=== PATIENT | male | born 1955 | race Caucasian/White ===

== ENCOUNTER 2016-10-24 10:50 | Observation (INO) ==
[2016-10-24 11:17] LABS: Basophils # 0.1 K/mcL (0.0-0.2); Basophils % 0.6 %; Eosinophils # 0.5 K/mcL (0.0-0.6); Eosinophils % 3.7 %; Hematocrit 48.6 % (37.5-50.1); Hemoglobin 16.5 g/dL (12.9-16.9); Immature Granulocytes % 0.3 % (0-4); Lymphocytes # 2.1 K/mcL (0.6-4.6); Lymphocytes % 16.5 %; Mean Corpuscular Hemoglobin 29.1 pg (28.0-33.3); Mean Corpuscular Volume 85.7 fL (83.0-100.0); Monocytes # 0.8 K/mcL (0.0-1.3); Monocytes % 6.3 %; Neutrophils # 9.2 K/mcL (1.6-8.9); Platelet Count 263 K/mcL (140-400); Red Blood Count 5.67 M/mcL (4.19-5.50); Red Cell Distribution Width 13.6 % (11.5-14.5); Segmented Neutrophils % 72.6 %
[2016-10-24 11:29] LABS: Activated Partial Thrombo Time 29.8 Seconds (26.0-36.0); BUN/Creatinine Ratio 16 (6-26); Blood Urea Nitrogen 14 mg/dL (8-26); Calcium 9.6 mg/dL (8.6-10.8); Carbon Dioxide 23 mEq/L (19-29); Chloride 102 mEq/L (98-109); Glucose 119 mg/dL (70-99); Osmolality,Calculated 280 (280-300); Potassium 4.3 mEq/L (3.5-4.5); Sodium 134 mEq/L (136-145); eGFR For African Americans > 60 (> 60); eGFR For Non-African Americans > 60 (> 60)
--- NOTE | 2016-10-24 11:47 | Emergency Department Note ---
Disposition Clinical Impression: Stroke Qualifiers: CVA mechanism: unspecified Qualified Code(s): I63.9 - Cerebral infarction, unspecified Disposition: Admitted As Inpatient Condition: Fair Time of Disposition: 13:18 Neuro HPI - General Chief Complaint: ED Neuro Symptoms/Deficit Stated Complaint: Left sided numbness Time Seen by Provider: 10/24/16 10:57 Source: patient, family, EMS Mode of arrival: EMS Limitations: other (poor historian. ) Nursing Notes Reviewed: Yes Vital Signs Reviewed: Yes - History of Present Illness HPI Narrative: 61 -year-old male with past medical history of left shoulder arthritis, history of suicidal ideation, hypertension, anxiety, smoking history, HLD. Should arrive to the ED by squad. He noticed left-sided weakness in his arm, face, leg started about 5 AM this morning. Patient is a very poor historian. He stated that last night he had very high blood pressure, but could not say what his blood pressure was. He took his blood pressure meds around 1 AM, drank a beer, and then went to sleep. He then woke up again around 430 and stated his blood pressure was still high. Around 5 AM he felt left-sided numbness with mild facial drooping and left arm and left leg weakness. He denies having any trouble walking. He denies chst pain, nausea, vomiting, diarrhea, fever, chills. He does report headache with pain behind his left eye and left-sided headache. Onset of Symptoms Date: 10/24/16 Onset of Symptoms Time: 05:00 Symptom Onset Unknown: Yes Location: speech, left face, left arm, left leg History of same: No Severity: mild Quality: weakness, numbness, tingling Symptoms Improving: No Improves with: none Worsens with: none Context: gradual onset On Anticoagulants: No Associated symptoms: Reports: headaches - Related Data Home Medications: Home Medications Medication Instructions Recorded Confirmed Lisinopril/Hydrochlorothiazide 1 each PO DAILY 10/24/16 10/24/16 [Zestoretic 20-25 mg Tablet] Metoprolol [Lopressor] 25 mg PO BID 10/24/16 10/24/16 Previous Rx's Medication Instructions Recorded diazePAM [Valium] 5 mg PO TID PRN #12 tablet 08/14/16 Allergies/Adverse Reactions: Allergies Allergy/AdvReac Type Severity Reaction Status Date / Time cephalexin [From Keflex] Allergy Diarrhea Verified 04/08/15 07:35 ciprofloxacin [From Cipro] Allergy Diarrhea Verified 04/08/15 07:35 Hydromorphone [From Dilaudid] Allergy Hives Verified 04/08/15 07:35 All systems ED: reviewed and negative except as stated. Past Medical History - Past Medical History Medical history: Reports: arthritis, hypertension Surgical history: Reports: orthopedic, other Psychiatric history: Reports: no psych history - Social History Smoking Status: Current every day smoker Smokeless Tobacco Status: No Alcohol use: Reports: occasionally Drug use: Reports: marijuana, prescription drug abuse Physical Exam - General Limitations: no limitations General appearance: alert, in no apparent distress - Head Head exam: atraumatic, other (mild left sided facial drooping with inabilit to move left side of mouth while speaking. ) - Eye Eye exam: Present: normal appearance - Neck Neck exam: Present: normal inspection, trachea midline - Chest Chest inspection: Present: normal inspection, symmetric chest wall rise - Respiratory Respiratory exam: Present: wheezes - Cardiovascular Cardiovascular exam: Present: regular rate, normal rhythm, +S1, +S2 - Abdominal Exam Abdominal exam: Present: soft, Non-Tender, normal bowel sounds - Extremities Exam Extremities exam: Present: other (Decreased sensation of left arm and left leg.) - Back Exam Back exam: Present: normal inspection - Neurological Exam Neurological exam: Present: alert, oriented X3, motor sensory deficit, other ( Muscle strength 5 out of 5.) - Skin Skin exam: Present: warm, dry, intact Course Vital Signs Temperature 99.0 F 10/24/16 10:55 Pulse Rate 64 10/24/16 10:55 Respiratory Rate 16 10/24/16 10:55 Blood Pressure 0/0 10/24/16 10:55 O2 Sat by Pulse Oximetry 98 10/24/16 10:55 Temperature 99.0 F 10/24/16 10:55 Pulse Rate 59 10/24/16 13:40 Respiratory Rate 16 10/24/16 13:41 Blood Pressure 139/84 10/24/16 13:41 O2 Sat by Pulse Oximetry 99 10/24/16 12:43 Oxygen Delivery Oxygen Delivery Room Air Neuro Symptoms/Deficit - MDM Narrative Medical decision making narrative: Stroke alert was called. NIH scale 2. Spoke with neurologist Dr. Bains at [facility] , who evaluated the patient over monitor. She did not recommend use of TPA at this time. CBC showed WBC of 12.6, neutrophil count of 9.2. Coags were unremarkable. Patient's EKG showed first degree heart block, troponin negative. CT head was negative. Patient needs to be admitted for further stroke workup. spoke With hospitalist, , who has accepted this patient for admission. Also spoke with neurologist, Dr. Velez, who will see this patient as consult. - Medical Records Medical records reviewed: Yes I reviewed the patient's medical records. - Lab Data Lab results reviewed: Yes I reviewed the patient's lab results. Result diagrams: 10/24/16 11:11 10/24/16 11:11 Lab Results 10/24/16 10/24/16 10/24/16 Range/Units 11:01 11:11 11:11 WBC 12.6 H (4.3-11.1) K/mcL RBC 5.67 H (4.19-5.50) M/mcL Hgb 16.5 (12.9-16.9) g/dL Hct 48.6 (37.5-50.1) % MCV 85.7 (83.0-100.0) fL MCH 29.1 (28.0-33.3) pg MCHC 34.0 (31.6-35.5) g/dL RDW 13.6 (11.5-14.5) % Plt Count 263 (140-400) K/mcL MPV 10.0 (9.4-12.4) fL Immature Gran % 0.3 (0-4) % Seg Neutrophils % 72.6 % Lymphocytes % 16.5 % Monocytes % 6.3 % Eosinophils % 3.7 % Basophils % 0.6 % Neutrophils # 9.2 H (1.6-8.9) K/mcL Lymphocytes # 2.1 (0.6-4.6) K/mcL Monocytes # 0.8 (0.0-1.3) K/mcL Eosinophils # 0.5 (0.0-0.6) K/mcL Basophils # 0.1 (0.0-0.2) K/mcL PT 11.0 (9.4-12.1) Seconds INR 1.0 APTT 29.8 (26.0-36.0) Seconds Sodium (136-145) mEq/L Potassium (3.5-4.5) mEq/L Chloride (98-109) mEq/L Carbon Dioxide (19-29) mEq/L BUN (8-26) mg/dL Creatinine (0.72-1.25) mg/dL Est GFR ( Amer) (> 60) Est GFR (Non-Af Amer) (> 60) BUN/Creatinine Ratio (6-26) Glucose (70-99) mg/dL POC Glucose 118 H (58-89) Calculated Osmolality (280-300) Calcium (8.6-10.8) mg/dL Troponin I (0-0.03) ng/mL Ethyl Alcohol (0-10) mg/dL 10/24/16 10/24/16 10/24/16 Range/Units 11:11 11:11 11:11 WBC (4.3-11.1) K/mcL RBC (4.19-5.50) M/mcL Hgb (12.9-16.9) g/dL Hct (37.5-50.1) % MCV (83.0-100.0) fL MCH (28.0-33.3) pg MCHC (31.6-35.5) g/dL RDW (11.5-14.5) % Plt Count (140-400) K/mcL MPV (9.4-12.4) fL Immature Gran % (0-4) % Seg Neutrophils % % Lymphocytes % % Monocytes % % Eosinophils % % Basophils % % Neutrophils # (1.6-8.9) K/mcL Lymphocytes # (0.6-4.6) K/mcL Monocytes # (0.0-1.3) K/mcL Eosinophils # (0.0-0.6) K/mcL Basophils # (0.0-0.2) K/mcL PT (9.4-12.1) Seconds INR APTT (26.0-36.0) Seconds Sodium 134 L (136-145) mEq/L Potassium 4.3 (3.5-4.5) mEq/L Chloride 102 (98-109) mEq/L Carbon Dioxide 23 (19-29) mEq/L BUN 14 (8-26) mg/dL Creatinine 0.87 (0.72-1.25) mg/dL Est GFR ( Amer) > 60 (> 60) Est GFR (Non-Af Amer) > 60 (> 60) BUN/Creatinine Ratio 16 (6-26) Glucose 119 H (70-99) mg/dL POC Glucose (58-89) Calculated Osmolality 280 (280-300) Calcium 9.6 (8.6-10.8) mg/dL Troponin I 0.01 (0-0.03) ng/mL Ethyl Alcohol < 10 (0-10) mg/dL - Radiology Data Radiology results reviewed: Yes I reviewed the patient's radiology results. - EKG Data EKG attestation: Yes I reviewed and interpreted this EKG. EKG results narrative: sinus bradycardia with first degree heart block, no ischemic changes. Ventricular rate: 58, SC interval 223, QRS duration: 104, Qt/Qtc: 398/396, P-R- T axes: 35 71 59 NIH Stroke Scale - Level of Consciousness LOC: Alert - LOC Questions LOC Questions: Answers both correctly - LOC Commands LOC Commands: Performs both correctly - Best Gaze Best Gaze: Normal - Visual Visual: No visual loss - Facial Palsy Facial Palsy: Minor asymmetry on smiling, flattened nasolabial fold - Motor Arms Motor Arm-Left: No drift for 10 seconds Motor Arm-Right: No drift for 10 seconds - Motor Legs Motor Leg-Left: No drift for 5 seconds Motor Leg-Right: No drift for 5 seconds - Limb Ataxia Limb Ataxia: Normal, No Ataxia - Sensory Sensory: Mild to moderate loss, "not as sharp" - Best Language Best Language: No aphasia - Dysarthria Dysarthria: Normal - Extinction and Inattention Extinction and Inattention: Normal - NIHSS Total Score NIHSS Total Score: 2 Attestation Statement - Attestation Attestation: I examined this patient and my medical decision-making was reviewed with the EPIDEMIOLOGIST/PA/Advanced Practice Nurse/Resident Physician. I agree with the documented findings, disposition and treatment plan as described except to the extent set forth below. 61-year-old who had onset of left-sided numbness and facial weakness at about 5 AM this morning. Patient reported to the emergency department about 11 AM. Physical examination he hasslight slurred speech and facial weakness, numbness to the left side of his body. CT scan of the head was obtained reported negative per radiology. A Valerio stroke consult was obtained with [facility] who did not feel the patient was a TPA candidate. The discussed the patient with the hospitalist patient will be admitted.
--- NOTE | 2016-10-24 13:23 | Neurology - Consult Note ---
Date of Encounter: 10/24/16 Time of Encounter: 12:15 Assessment and Plan (1) Stroke Current Visit: Yes Status: Acute 61-year old man with multiple risk factors for stroke, admitted with left hemibody syndrome and left facial droop, likely with acute stroke. His NIH was determined to be 2, and tPA was not give (telestroke with [facility]). Likely small vessel stroke, suspect right thalamic. CTH - unremarkable except for longstanding white matter disease. MRI brain. Ok for BP to be 160-180 for the first 24 hrs, after which - needs HTN control. ASA 325. CT angiography of head and neck vessels (or carotid duplex) and Cardiac Echo. Lipid panel, if elevated, need to start statin. Smoking cessation. Case will be followed by Dr. Lovell/Kris tomorrow. Qualifiers: CVA mechanism: unspecified Qualified Code(s): I63.9 - Cerebral infarction, unspecified History of Present Illness Chief complaint: numbness on the left HPI: Mr. Lucia is a 61 year old male witih prior history of smoking, hypertension , cardiomyopathy, with complaints of left-sided numbness that he noticed this morning at 530. He apparently came to the ER at 10:30 or so, only after talking to several other people. His blood pressure was also found to be high at 170-180s. He also had a right-sided headache, without any neck pain. He also has a history of PTSD and depression and anxiety and aversion to crowds. He lives by himself. He states that he is doing ok now, but still has the sensory problem. No chest pain, no shortness of breath, no swallowing difficulty. He has prior chronic issues of hip and back issues and has had surgeries for those. CTH showed no intracranial bleed. Past Med Surg Social Fam HX - Past Medical History Medical history: arthritis, cardiomyopathy, hypertension Psychiatric history: anxiety, depression, panic disorder, PTSD - Past Surgical History Surgical History: orthopedic, other - Social History Smoking Status: Heavy tobacco smoker Smokeless Tobacco Status: No Alcohol use: occasionally Drug use: marijuana, prescription drug abuse Occupational status: unemployed Current living situation: Home - Independent Medications and Allergies diazePAM [Valium] 5 mg PO TID PRN #12 tablet 08/14/16 [Rx] Lisinopril/Hydrochlorothiazide [Zestoretic 20-25 mg Tablet] 1 each PO DAILY [History] Metoprolol [Lopressor] 25 mg PO BID 10/24/16 [History] Allergies cephalexin [From Keflex] Allergy (Verified 04/08/15 07:35) Diarrhea ciprofloxacin [From Cipro] Allergy (Verified 04/08/15 07:35) Diarrhea Hydromorphone [From Dilaudid] Allergy (Verified 04/08/15 07:35) Hives All Systems: A 10-system review of systems was performed and is negative for pertinent findings except as documented above in the HPI. - Constitutional Constitutional ROS IM: as per HPI Physical Examination - Vital Signs Vital Signs: Initial Vital Signs Temp Pulse Resp BP Pulse Ox 99.0 F 64 16 0/0 98 10/24/16 10:55 10/24/16 10:55 10/24/16 10:55 10/24/16 10:55 10/24/16 10:55 Vital Signs - 24 hr 10/24/16 10:55 10/24/16 11:20 10/24/16 11:34 Temperature 99.0 F Pulse Rate 64 64 61 Respiratory Rate 16 16 16 Blood Pressure 0/0 147/90 141/85 O2 Sat by Pulse Oximetry 98 98 10/24/16 12:08 10/24/16 12:43 Temperature Pulse Rate 62 58 Respiratory Rate 16 16 Blood Pressure 148/64 135/98 O2 Sat by Pulse Oximetry 98 99 - Exam Exam: no double extinction. no hemineglect. - Constitutional General appearance: comfortable - Neurologic Detailed motor examination: full strength in all major muscle groups Motor examination - right side: 5/5: deltoids, biceps, triceps, wrist flexion, wrist extension, room server, hip flexors, tibialis Anterior, quadriceps, toe extension (EHL), plantarflexion Motor examination - left side: 5/5: deltoids, biceps, triceps, wrist flexion, wrist extension, hip flexors, room server, quadriceps, tibialis Anterior, toe extension (EHL), plantarflexion Detailed sensory examination: extinction (none), other (left hemibody sensory loss) Reflex and gait examination: other (mildly hyper-reflexic on the left.) Reflexes: Biceps: 3+ (on the left), Triceps: 3+ (on the left), Brachioradialis: 3+ (on the left), Patella: 3+ (bilaterally), Achilles: 0 (bilaterally) Mental Status Examination: awake, alert, oriented to person, oriented to place, oriented to time, follows commands appropriately, answers questions appropriately, no agnosia, no aphasia, no aproxia Cranial nerve examination: PERRL, EOMI, visual eddy intact, corneal reflexes brisk symmetrically, sensory to face intact (left face sensory los), mastication intact, no facial asymmetry is present (mild left facial droop, lower face), no dysarthria, hearing is intact symmetrically, soft palate elevates bilaterally upon phonation, gag reflex intact, flexes SCM and trapezius muscles symmetrically with full power, tongue protrudes midline, no atrophy or facial fasiculations present Cranial Nerve Exam: facial hypesthesia: Left, flattening of masolabic/folds: Left (mild left lower face droop) Cerebellar examination: no dysmetria, performs finger to nose and heel to dong symmetrically without ataxia, no gait ataxia, no truncal ataxia, no difficulty with rapid alternating movements Results - Laboratory Findings CBC and BMP: 10/24/16 11:11 10/24/16 11:11 Abnormal lab findings: Abnormal lab results WBC 12.6 K/mcL (4.3-11.1) H 10/24/16 11:11 RBC 5.67 M/mcL (4.19-5.50) H 10/24/16 11:11 Neutrophils # 9.2 K/mcL (1.6-8.9) H 10/24/16 11:11 Sodium 134 mEq/L (136-145) L 10/24/16 11:11 Glucose 119 mg/dL (70-99) H 10/24/16 11:11 POC Glucose 118 (58-89) H 10/24/16 11:01 - Diagnostic Findings Additional findings: Head CT 10/24/16 10:58 IMPRESSION: No acute intracranial abnormality. Age related changes including chronic small vessel ischemic disease and cerebral atrophy. Findings were discussed with Dr. Burton on 10/24/2016 at 6:15 a.m. D/ / 10/24/2016 11:19:48 Suly Crouch MD / beata Interpreting Provider: Suly Crouch MD Consult Discharge Plan - Plan
[2016-10-24] MEDS ORDERED: Naloxone 0.4 MG/ML INJ IVP PRN (13:36)
[2016-10-24] MEDS ORDERED: Acetaminophen 325 MG TABLET PO PRN (13:36)
[2016-10-24] MEDS ORDERED: Ondansetron 4 MG/2 ML VIAL IVP PRN (13:36)
[2016-10-24] MEDS ORDERED: diazePAM 5 MG TABLET PO PRN (13:46)
[2016-10-24] MEDS ORDERED: Aspirin 81 MG TAB.CHEW PO ONE (13:50)
[2016-10-24] MEDS ORDERED: Nicotine 21 MG PATCH.TD24 TD SCH (14:00)
[2016-10-24] MEDS ORDERED: *HR* Metoprolol 5 MG/5 ML VIAL IVP PRN (14:04)
[2016-10-24] MEDS ORDERED: *HR* LORazepam 2 MG/ML VIAL IVP PRN (14:28)
--- NOTE | 2016-10-24 14:34 | Internal Med History&Physical ---
<Eric Salvador - Last Filed: 10/24/16 19:08> Date of Encounter: 10/24/16 Internal Medicine - H&P: HPI History of present illness: Mr. Lucia is a 61 year old male Internal Medicine - H&P: Meds diazePAM [Valium] 5 mg PO TID PRN #12 tablet 08/14/16 [Rx] Lisinopril/Hydrochlorothiazide [Zestoretic 20-25 mg Tablet] 1 each PO DAILY [History] Metoprolol [Lopressor] 25 mg PO BID 10/24/16 [History] Allergies cephalexin [From Keflex] Allergy (Verified 04/08/15 07:35) Diarrhea ciprofloxacin [From Cipro] Allergy (Verified 04/08/15 07:35) Diarrhea Hydromorphone [From Dilaudid] Allergy (Verified 04/08/15 07:35) Hives All Systems PM: A 10-system review of systems was performed and is negative for pertinent findings except as documented above in the HPI. - Constitutional Vitals: Temp Pulse Resp BP Pulse Ox 98.3 F 64 16 137/90 97 10/24/16 15:13 10/24/16 17:40 10/24/16 17:40 10/24/16 17:40 10/24/16 15:13 Internal Med - H&P Results - Labs CBC & Chem 7: 10/24/16 11:11 10/24/16 11:11 - Impressions ITS Impressions Brain MRI 10/24/16 13:57 IMPRESSION: 1. No evidence of acute infarct. 2. Moderate chronic microvascular white matter ischemic disease is noted supra and infratentorially. 3. Thickened secretions in the left ethmoid air cells and left maxillary sinus, concerning for acute sinusitis. D/ / 10/24/2016 16:53:59 Domo Cruz MD / rustay Interpreting Provider: Domo Cruz MD Neck MRA 10/24/16 13:57 IMPRESSION: 1. There is a 30% stenosis in the proximal right internal carotid artery using NASCET criteria. 2. The left internal carotid artery is normal in appearance. 3. The vertebral arteries are patent bilaterally. D/ / 10/24/2016 16:57:38 Domo Cruz MD / beata Interpreting Provider: Domo Cruz MD Head MRA 10/24/16 14:03 IMPRESSION: 1. Unremarkable MRA of the brain. D/ / Domo Cruz MD / Domo Cruz MD Interpreting Provider: Domo Cruz MD - Attending Attestation I examined this patient and my medical decision-making was reviewed with the Advanced Practice Nurse. I agree with the documented findings, disposition and treatment plan as described except to the extent set forth below. Physical examination: Patient is awake alert oriented 3. There is left facial droop present. Muscle strength is equal bilaterally. Sensation to light touch is diminished on the left side of the face and left upper extremity, is equal on both lower extremities. DTRs are present and symmetrical at bicipital tricipital, patellar and Achilles tendon sites. Plan: Obtain MRI of the brain and MRA. Consult neurology. He was outside the therapeutic window for TPA. <Pushpa Flores - Last Filed: 10/24/16 22:32> Date of Encounter: 10/24/16 Time of Encounter: 14:30 Assessment and Plan (1) CVA (cerebral vascular accident) Current visit: Yes Status: Acute Patient presents with left sided facial droop, with flattening of the nasolabial fold, inability to close left eye and difficulty moving left side of mouth. He reports numbness on the left side of his face as well as numbness in his left arm and leg. He reports the numbness in arm and lef have resolved and his face is starting to feel normal again. He was outside of the window for tPA. CT of the head was negative for acute intracranial abnormality. MRI with contrast of the head, brain and neck echocardiogram speech therapy consult for swallow eval NPO until patient passes swallow eval Neurology consulted. Qualifiers: CVA mechanism: unspecified Qualified Code(s): I63.9 - Cerebral infarction, unspecified (2) Smoker Current visit: Yes Status: Acute Patient reports he smokes 1.5 packs per day as well as marijuana. Discussed smoking cessation, patient not interested in quitting at this time. Smoking cessation education ordered. Nicotine patch ordered. (3) Hypertension Current visit: Yes Status: Acute Patient's blood pressure has been running 140s/90s since arrival. Holding PO medications until he passes swallow study. Metoprolol 2.5mg IVP Q6hr PRN for SBP > 160 or DBP > 100. Qualifiers: Hypertension type: essential hypertension Qualified Code(s): I10 - Essential (primary) hypertension (4) Facial droop due to stroke Current visit: Yes Status: Acute Patient reports he has had facial numbness on and off for a while. Today he has asymmetrical smile, inability to close left eye, flattening of nasolabial fold along with numbness to left arm and leg (now resolving). CVA work up initiated and Neurology consulted. speech therapy consulted for swallow eval. NPO until he passes swallow eval. (5) DVT prophylaxis Current visit: Yes Status: Acute anti-embolic stockings. lovenox 40mg SQ daily Internal Medicine - H&P: HPI Chief complaint: facial droop and left sided weakness Admitted From: Emergency Dept Plans for Post Hospital Care: Home History of present illness: Mr. Lucia is a 61 year old male with hypertension, hyperlipidemia, anxiety, presented to the emergency department today with complaints of left-sided facial droop and left arm and leg numbness. Patient reports he noted symptoms at 5 AM. His face felt numb and tingly, his left arm and left leg felt numb though he had full movement and strength. He denies any chest pain, palpitations, shortness of breath, lightheadedness. He does endorse a mild left -sided headache. He denies any nausea or vomiting, abdominal pain diarrhea, fever chills or sweats. Evaluation in the emergency department included a CT of the head which showed no intracranial abnormality. White blood cell count was mildly elevated at 12.6. [facility] was contacted, they felt he was not a candidate for TPA. On my exam, patient reports that the left sided numbness in his arm and leg has resolved, and his face is starting to feel back to normal. However patient still has left-sided facial droop, plan nasal labial fold, and asymmetrical smile. Heart has regular rate and rhythm. Lungs are clear bilaterally to auscultation. Equal strength bilaterally. Patient reports normal sensation bilaterally on face, cranial nerves are intact, no pronator drift. Past Med Surg Social Fam HX - Past Medical History Medical history: arthritis, hypertension Psychiatric history: anxiety - Past Surgical History Surgical History: orthopedic, other - Social History Smoking Status: Current every day smoker Smokeless Tobacco Status: No Alcohol use: occasionally Drug use: marijuana, prescription drug abuse - Family History Mother Living Status: Age at : 64 Cause of : [place] Hx Family Cardiac Disorders: Yes Father Living Status: Age at : 58 Cause of : [place] Hx Family Cardiac Disorders: Yes All Systems PM: A 10-system review of systems was performed and is negative for pertinent findings except as documented above in the HPI. - Constitutional Constitutional: no chills, no fever(s), no night sweats - EENT Eyes: no change in vision, no discharge, no pain, no photophobia Ears: no ear discharge, no ear pain, no tinnitus Nose, mouth and throat: no dysphagia, no nasal discharge, no neck pain, no sore throat - Cardiovascular Cardiovascular ROS IM: no chest pain, no diaphoresis, no dyspnea, no lightheadedness, no palpitations, no syncope - Respiratory Respiratory: no cough, no dyspnea, no wheezing, no excessive phlegm production - Gastrointestinal Gastrointestinal: no abdominal pain, no diarrhea, no hematemesis, no hematochezia, no melena, no nausea, no vomiting - Musculoskeletal Musculoskeletal ROS IM: no numbness, no tingling - Integumentary Integumentary IM: no rash, no unusual bruising - Neurological Neurological ROS: headache(s), numbness (left face, left arm, left leg), no confusion, no convulsions, no focal weakness, no tingling, no tremor(s) - Hematologic/Lymphatic Hematologic/Lymphatic: no easy bruising - Constitutional Vitals: Temp Pulse Resp BP Pulse Ox 99.0 F 59 16 139/84 99 10/24/16 10:55 10/24/16 13:40 10/24/16 13:41 10/24/16 13:41 10/24/16 12:43 General appearance: Present: A&O X 3, pleasant, no acute distress - Head Head exam: Present: atraumatic, normocephalic - Eye Eye exam: Present: PERRL, conjuntiva pink, sclera anicteric Pupils: Present: PERRL - Neck Neck exam general surgery: Present: supple, trachea midline. Absent: lymphadenopathy - Respiratory Respiratory exam: Present: CTAB. Absent: accessory muscle use, rales, rhonchi, wheezes - Cardiovascular Cardiovascular exam: Present: RRR, +S1, +S2. Absent: diastolic murmur, gallop, rubs, systolic murmur - GI/Abdominal GI/Abdominal exam: Present: normal bowel sounds, soft, no peritoneal signs. Absent: distended, tenderness - Extremities Exam Extremities exam: Present: warm, radial pulses palpable and symetrical. Absent : calf tenderness, cyanotic, pedal edema - Neurological Exam Neurological exam: Present: oriented X3, strengths equal and symetr throughout, facial droop. Absent: pronater drift, speech deficit - Expanded Neurological Exam Cranial Nerves: EOM's intact PM: Normal, tongue deviation PM: Normal Cerebellar function: finger to nose: Normal Sensory exam: LE 2 point discrimination: Normal, UE 2 point discrimination: Normal Neuro motor strength exam: LUE: 5, RUE: 5, LLE: 5, RLE: 5 - Skin Skin exam: Present: dry, intact Internal Med - H&P Results - Labs CBC & Chem 7: 10/24/16 11:11 10/24/16 11:11 Labs: Head CT 10/24/16 10:58 IMPRESSION: No acute intracranial abnormality. Age related changes including chronic small vessel ischemic disease and cerebral atrophy. Findings were discussed with Dr. Burton on 10/24/2016 at 6:15 a.m. D/ / 10/24/2016 11:19:48 Suly Crouch MD / beata Interpreting Provider: Suly Crouch MD - Diagnostic Studies CT scan - head Additional comments: Head CT 10/24/16 10:58
[2016-10-24] MEDS: Nicotine 21 MG PATCH.TD24 TD SCH (16:57)
[2016-10-24] MEDS ORDERED: *HR* Morphine 2 MG/ML SYRINGE IVP PRN (18:27)
[2016-10-24] MEDS: Ipratropium/Albuterol Neb 3 ML IH PRN (21:36)
[2016-10-25] MEDS: Ketorolac 30 MG/ML VIAL IVP PRN ×2 (01:58→13:03)
[2016-10-25 02:51] LABS: Basophils % 0.3 %; Eosinophils # 0.1 K/mcL (0.0-0.6); Eosinophils % 0.5 %; Hematocrit 49.6 % (37.5-50.1); Hemoglobin 17.1 g/dL (12.9-16.9); Immature Granulocytes % 0.4 % (0-4); Lymphocytes % 15.6 %; Mean Corpuscular HGB Conc 34.5 g/dL (31.6-35.5); Mean Corpuscular Volume 84.1 fL (83.0-100.0); Mean Platelet Volume 9.9 fL (9.4-12.4); Monocytes # 0.8 K/mcL (0.0-1.3); Monocytes % 5.9 %; Neutrophils # 10.1 K/mcL (1.6-8.9); Platelet Count 279 K/mcL (140-400); Red Cell Distribution Width 13.3 % (11.5-14.5); Segmented Neutrophils % 77.3 %
[2016-10-25 02:56] LABS: INR 1.1; Prothrombin Time 11.6 Seconds (9.4-12.1)
[2016-10-25 03:07] LABS: BUN/Creatinine Ratio 13 (6-26); Blood Urea Nitrogen 13 mg/dL (8-26); Carbon Dioxide 21 mEq/L (19-29); Chloride 99 mEq/L (98-109); Cholesterol 212 mg/dL (< 200); Glucose 117 mg/dL (70-99); HDL Cholesterol 42 mg/dL (40-59); LDL Cholesterol,Calculated 135 mg/dL (0-99); Osmolality,Calculated 277 (280-300); Sodium 133 mEq/L (136-145); Triglycerides 174 mg/dL (< 150); eGFR For African Americans > 60 (> 60); eGFR For Non-African Americans > 60 (> 60)
--- NOTE | 2016-10-25 03:27 | Event Note ---
Date of Encounter: 10/25/16 Time of Encounter: 03:26 On-call Hospitalist Note: I was paged by the nurse at abot 02:10 AM. RN reported that the pt presented with left facial weakness, but was noted to have slurred speech, new weakness of the left upper and lower extemities. NIHSS is 5 (was 1 at 1:30 AM). Code stroke was called. CT head was negative for bleed. Called [facility] neurologist Dr Bains, who indicated that the pt is not a candidate for TPA (because the NIHSS was never 0 during this admission. Neurologist recommended CTA head - which was done and showed no occlusive thrombus. Pt is transferred back to [facility]
[2016-10-25] MEDS ORDERED: 0.9 % Sodium Chloride 1,000 ML IVC SCH (03:30)
[2016-10-25] MEDS ORDERED: *HR* Enoxaparin 40 MG/0.4 ML SYRINGE SQ SCH (07:00)
[2016-10-25] MEDS: Ipratropium/Albuterol Neb 3 ML IH PRN (08:03)
[2016-10-25] MEDS ORDERED: Aspirin 81 MG TAB.CHEW PO SCH (09:00)
[2016-10-25] MEDS ORDERED: diazePAM 5 MG TABLET PO PRN (09:56)
--- NOTE | 2016-10-25 10:02 | Internal Med Progress Note ---
<Armand Monroe - Last Filed: 10/25/16 10:00> Date of Encounter: 10/25/16 Time of Encounter: 10:00 - Assessment and plan (1) TIA (transient ischemic attack) Current Visit: Yes Status: Acute Assessment and plan: Patient presented with left-sided facial droop as well as left facial numbness patient also had an episode overnight where he had left arm and leg numbness and weakness. At this point imaging is unremarkable including MRI just showing chronic microvascular white matter ischemic disease but no evidence of acute infarct, MRA of the neck showed a 30% stenosis of the right ICA. Echocardiogram and EKG are normal. No objective evidence of an embolic stroke. Neurology is following. Patient had no swallowing difficulty on speech eval, PT OT pending. Continue aspirin, statin. Qualifiers: Transient cerebral ischemia type: unspecified Qualified Code(s): G45.9 - Transient cerebral ischemic attack, unspecified (2) Hypertension Current Visit: Yes Status: Acute Assessment and plan: Mildly elevated at this time. Hypertensive medications had been held till speech evaluation to be completed which patient completed and passed so we will restart home medications. Qualifiers: Hypertension type: essential hypertension Qualified Code(s): I10 - Essential (primary) hypertension (3) DVT prophylaxis Current Visit: Yes Status: Acute Assessment and plan: Lovenox 40 mg subcutaneous daily. - Subjective Interval history: Patient seen and examined at bedside. Patient states that he feels better compared to yesterday. He reports some mild anxiety. Denies any weakness, numbness, tingling. - Constitutional Vitals: Temp Pulse Resp BP Pulse Ox 98.2 F 60 17 144/81 84 10/25/16 07:52 10/25/16 07:52 10/25/16 08:03 10/25/16 07:52 10/25/16 08:03 General appearance: Present: A&O X 3, pleasant, no acute distress - Respiratory Respiratory exam: Present: CTAB. Absent: rales, rhonchi, wheezes - Cardiovascular Cardiovascular exam: Present: RRR. Absent: gallop, rubs, systolic murmur - GI/Abdominal GI/Abdominal exam: Present: normal bowel sounds, soft. Absent: distended, tenderness - Extremities Exam Extremities exam: Present: warm. Absent: pedal edema, tenderness - Neurological Exam Neurological exam: Present: alert, oriented X3, strengths equal and symetr throughout, facial droop (Mild left). Absent: motor sensory deficit, speech deficit Internal Medicine: Result - Labs CBC & Chem 7: 10/25/16 02:45 10/25/16 02:45 Labs: Short CBC 10/25/16 Range/Units 02:45 WBC 13.0 H (4.3-11.1) K/mcL Hgb 17.1 H (12.9-16.9) g/dL Hct 49.6 (37.5-50.1) % Plt Count 279 (140-400) K/mcL Neutrophils # 10.1 H (1.6-8.9) K/mcL BMP 10/25/16 02:45 Sodium 133 L Potassium 4.0 Chloride 99 Carbon Dioxide 21 BUN 13 Creatinine 0.97 Glucose 117 H Calcium 10.0 Cardiac Enzymes 10/25/16 Range/Units 02:45 Troponin I 0.01 (0-0.03) ng/mL - ABG Interpretation ABG results: PT/INR, D-dimer PT 11.6 Seconds (9.4-12.1) 10/25/16 02:45 - Impressions Impressions Brain MRI 10/24/16 13:57 IMPRESSION: 1. No evidence of acute infarct. 2. Moderate chronic microvascular white matter ischemic disease is noted supra and infratentorially. 3. Thickened secretions in the left ethmoid air cells and left maxillary sinus, concerning for acute sinusitis. D/ / 10/24/2016 16:53:59 Domo Cruz MD / [facility] Interpreting Provider: Domo Cruz MD Neck MRA 10/24/16 13:57 IMPRESSION: 1. There is a 30% stenosis in the proximal right internal carotid artery using NASCET criteria. 2. The left internal carotid artery is normal in appearance. 3. The vertebral arteries are patent bilaterally. D/ / 10/24/2016 16:57:38 Domo Cruz MD / [place] Interpreting Provider: Domo Cruz MD Head MRA 10/24/16 14:03 IMPRESSION: 1. Unremarkable MRA of the brain. D/ / Domo Cruz MD / Domo Cruz MD Interpreting Provider: Domo Cruz MD Head CT 10/25/16 02:35 IMPRESSION: No acute intracranial abnormality. Chronic microvascular ischemic changes are noted. Minimal fluid is seen within the left maxillary sinus which can be seen acute sinusitis. Findings were discussed with Ericka Luna at 3:04 am on 10/25/2016. D/ / Leonie Lopes MD / Leonie Lopes MD Interpreting Provider: Leonie Lopes MD Head CTA 10/25/16 03:25 IMPRESSION: 1. Minimal atheromatous plaque within the cavernous ICAs bilaterally without flow limiting stenosis. 2. Otherwise unremarkable CTA of the brain. D/ / Figueroa Bell MD / Figueroa Bell MD Interpreting Provider: Figueroa Bell MD - VTE Documentation of Mechanical Device: Graduated compression elastic hosiery Consult Discharge Plan - Plan Referrals: NO,PCP [Non-Partnered Physician] - <Jennifer Cordova - Last Filed: 10/25/16 14:06> Date of Encounter: 10/25/16 - Constitutional Vitals: Temp Pulse Resp BP Pulse Ox 98.3 F 68 16 146/83 98 10/25/16 11:06 10/25/16 11:06 10/25/16 11:06 10/25/16 11:06 10/25/16 11:06 Internal Medicine: Result - Labs CBC & Chem 7: 10/25/16 02:45 10/25/16 02:45 Labs: Short CBC 10/25/16 Range/Units 02:45 WBC 13.0 H (4.3-11.1) K/mcL Hgb 17.1 H (12.9-16.9) g/dL Hct 49.6 (37.5-50.1) % Plt Count 279 (140-400) K/mcL Neutrophils # 10.1 H (1.6-8.9) K/mcL BMP 10/25/16 02:45 Sodium 133 L Potassium 4.0 Chloride 99 Carbon Dioxide 21 BUN 13 Creatinine 0.97 Glucose 117 H Calcium 10.0 Cardiac Enzymes 10/25/16 Range/Units 02:45 Troponin I 0.01 (0-0.03) ng/mL - ABG Interpretation ABG results: PT/INR, D-dimer PT 11.6 Seconds (9.4-12.1) 10/25/16 02:45 - Impressions Impressions Brain MRI 10/24/16 13:57 IMPRESSION: 1. No evidence of acute infarct. 2. Moderate chronic microvascular white matter ischemic disease is noted supra and infratentorially. 3. Thickened secretions in the left ethmoid air cells and left maxillary sinus, concerning for acute sinusitis. D/ / 10/24/2016 16:53:59 Domo Cruz MD / [facility] Interpreting Provider: Domo Cruz MD Neck MRA 10/24/16 13:57 IMPRESSION: 1. There is a 30% stenosis in the proximal right internal carotid artery using NASCET criteria. 2. The left internal carotid artery is normal in appearance. 3. The vertebral arteries are patent bilaterally. D/ / 10/24/2016 16:57:38 Domo Crzu MD / [place] Interpreting Provider: Domo Cruz MD Head MRA 10/24/16 14:03 IMPRESSION: 1. Unremarkable MRA of the brain. D/ / Domo Cruz MD / Domo Cruz MD Interpreting Provider: Domo Cruz MD Head CT 10/25/16 02:35 IMPRESSION: No acute intracranial abnormality. Chronic microvascular ischemic changes are noted. Minimal fluid is seen within the left maxillary sinus which can be seen acute sinusitis. Findings were discussed with Ericka Luna at 3:04 am on 10/25/2016. D/ / Leonie Lopes MD / Leonie Lopes MD Interpreting Provider: Leonie Lopes MD Head CTA 10/25/16 03:25 IMPRESSION: 1. Minimal atheromatous plaque within the cavernous ICAs bilaterally without flow limiting stenosis. 2. Otherwise unremarkable CTA of the brain. D/ / Figueroa Bell MD / iFgueroa Bell MD Interpreting Provider: Figueroa Bell MD - Attending Attestation I saw and examined pt. I have discussed with Resident Dr Gutierrez regarding pt's management plan. I agree with the documentation. Pt doing well. Facial drop and left hand numbness resolved. MRI negative. Consider TIA. Echo unremarkable. Will cont cardiac monitoring to r/o PAF. Cont antiplatelet and statin. Neurology on case and recommendation will be followed.
[2016-10-25] MEDS ORDERED: Naphazoline/Pheniramine Opth 15 ML BOTTLE BOTH EYES PRN (10:33)
[2016-10-25] MEDS ORDERED: ALPRAZolam 1 MG TABLET PO PRN (15:00)
[2016-10-25 15:20] VITALS: BP 159/88
[2016-10-25] MEDS: Nicotine 21 MG PATCH.TD24 TD SCH (15:29)
--- NOTE | 2016-10-25 17:45 | Neurology Progress Note ---
Date of Encounter: 10/25/16 Time of Encounter: 17:38 Assessment and Plan (1) TIA (transient ischemic attack) Current Visit: Yes Status: Acute I presume that this gentleman has suffered a TIA. He does have stroke risk factors which include HTN, HLD and cigarette smoking. I suspect that medical compliance may be an issue. Recommend ongoing mgmt of his risk factors, statins , also recommend starting plavix and d/c ASA. His brain MRI shows significant chronic ischemic white matter changes. Smoking cessation is strongly recommended. Will revaluate at your request. Qualifiers: Transient cerebral ischemia type: unspecified Qualified Code(s): G45.9 - Transient cerebral ischemic attack, unspecified Subjective Interval history: The chart was reviewed, the patient was seen and examined. He denies any further sx of left facial weakness or slurred speech. He came to the hospital because he thought he was having a stroke. He does have a history of HTN and HLD. He has had multiple tests completed. MRI of the brain shows significant deep white matter chronic ischemic change. He rolls and smokes his own cigarettes. He states he won't quit. Echo cardiogram was negative,MRA of head and neck reveal no hemodynamically significant lesions. He splits an adult asprin into quarters and takes one daily. Objective - Constitutional Vitals: Temp Pulse Resp BP Pulse Ox 98.6 F 63 16 159/88 97 10/25/16 15:17 10/25/16 15:17 10/25/16 15:17 10/25/16 15:17 10/25/16 15:17 - Neurological Exam Motor Examination: Present: full strength in all major muscle groups Motor examination - right side: 5/5: deltoids, biceps, triceps, wrist flexion, wrist extension, refinery operator helper crude unit, hip flexors, tibialis Anterior, quadriceps, toe extension (EHL), plantarflexion Motor examination - left side: 5/5: deltoids, biceps, triceps, wrist flexion, wrist extension, hip flexors, refinery operator helper crude unit, quadriceps, tibialis Anterior, toe extension (EHL), plantarflexion Sensation intact: Present: extinction (none), other (left hemibody sensory loss) Reflex and gait examination: other (mildly hyper-reflexic on the left.) Mental Status Examination: Present: awake, alert, oriented to person, oriented to place, oriented to time, follows commands appropriately, answers questions appropriately, no agnosia, no aphasia, no aproxia Cranial nerve examination: Present: PERRL, EOMI, visual eddy intact, corneal reflexes brisk symmetrically, sensory to face intact (left face sensory los), mastication intact, no facial asymmetry is present (mild left facial droop, lower face), no dysarthria, hearing is intact symmetrically, soft palate elevates bilaterally upon phonation, gag reflex intact, flexes SCM and trapezius muscles symmetrically with full power, tongue protrudes midline, no atrophy or facial fasiculations present Cranial Nerve Exam: facial hypesthesia: Left, flattening of masolabic/folds: Left (mild left lower face droop) Cerebellar examination: Present: no dysmetria, performs finger to nose and heel to dong symmetrically without ataxia, no gait ataxia, no truncal ataxia, no difficulty with rapid alternating movements - VTE Documentation of Mechanical Device: Graduated compression elastic hosiery Results - Laboratory Findings CBC and BMP: 10/25/16 02:45 10/25/16 02:45 Abnormal lab findings: Abnormal lab results WBC 13.0 K/mcL (4.3-11.1) H 10/25/16 02:45 RBC 5.90 M/mcL (4.19-5.50) H 10/25/16 02:45 Hgb 17.1 g/dL (12.9-16.9) H 10/25/16 02:45 Neutrophils # 10.1 K/mcL (1.6-8.9) H 10/25/16 02:45 Sodium 133 mEq/L (136-145) L 10/25/16 02:45 Glucose 117 mg/dL (70-99) H 10/25/16 02:45 POC Glucose 121 (58-89) H 10/25/16 03:01 Calculated Osmolality 277 (280-300) L 10/25/16 02:45 Triglycerides 174 mg/dL (< 150) H 10/25/16 02:45 Cholesterol 212 mg/dL (< 200) H 10/25/16 02:45 LDL Cholesterol, Calc 135 mg/dL (0-99) H 10/25/16 02:45 VLDL Cholesterol, Calc 35 mg/dL (< 31) H 10/25/16 02:45 Cholesterol/HDL Ratio 5.0 (0-4.9) H 10/25/16 02:45 Consult Discharge Plan - Plan Referrals: NO,PCP [Non-Partnered Physician] -
--- NOTE | 2016-10-25 17:50 | Electrocardiograph Report ---
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
--- NOTE | 2016-10-25 18:33 | Discharge Summary ---
Date of Encounter: 10/25/16 Time of Encounter: 18:20 - Discharge Diagnosis (1) Smoker Priority: Primary Status: Acute (2) Hypertension Priority: Primary Status: Acute Qualifiers: Hypertension type: essential hypertension Qualified Code(s): I10 - Essential (primary) hypertension (3) DVT prophylaxis Priority: Secondary Status: Acute (4) TIA (transient ischemic attack) Priority: Primary Status: Acute Qualifiers: Transient cerebral ischemia type: unspecified Qualified Code(s): G45.9 - Transient cerebral ischemic attack, unspecified - Discharge Medications Prescriptions: Atorvastatin [Lipitor] 40 mg PO HS #30 tablet Clopidogrel [Plavix] 75 mg PO DAILY #30 tablet Home Medications: diazePAM [Valium] 5 mg PO TID PRN #12 tablet 08/14/16 [Rx] Lisinopril/Hydrochlorothiazide [Zestoretic 20-25 mg Tablet] 1 each PO DAILY [History] Metoprolol [Lopressor] 25 mg PO BID 10/24/16 [History] Atorvastatin [Lipitor] 40 mg PO HS #30 tablet 10/25/16 [Rx] Clopidogrel [Plavix] 75 mg PO DAILY #30 tablet 10/25/16 [Rx] Allergies/Adverse Reactions: Allergies cephalexin [From Keflex] Allergy (Verified 04/08/15 07:35) Diarrhea ciprofloxacin [From Cipro] Allergy (Verified 04/08/15 07:35) Diarrhea Hydromorphone [From Dilaudid] Allergy (Verified 04/08/15 07:35) Hives Procedures/tests Complete & Pending: Procedures Performed prior 72 hours Category Date Time Status CT stroke alert head wo con [CT] Stat Cat Scan 10/25/16 02:35 Completed CTA Head [CT angio head] [CT] Stat Cat Scan 10/25/16 03:25 Completed MR angio head wo con [MR] Stat MRI 10/24/16 14:03 Completed MR angio neck wo/w con [MR] Stat MRI 10/24/16 13:57 Completed MR head/brain wo/w con [MR] Stat MRI 10/24/16 13:57 Completed ECG 12 lead ECG [ECG] Routine Y 10/24/16 11:57 Completed EV echocardiogram Routine Y 10/25/16 13:38 Completed Date of admission: 10/24/16 13:35 Primary care physician: Kenny Pepe DO Consults: 10/24/16 13:58 Consult to Speech Therapy [CONS] Routine Comment: Evaluate, develop and implement POC Reason for Consult: left sided facial droop. Please perform swallow study. thanks! Call Completed: Yes 10/25/16 11:10 Consult to [facility] Consultant [CONS] Routine Reason for SW Consult: Outpatient services Discharging clinician: Jennifer Cordova Anticipated date of discharge: 10/25/16 - Patient Status Disposition: Left Against Medical Advice Condition: Fair Functional capacity at discharge: independent ambulation Overall status at discharge: patient is progressing back to baseline - Discharge Instructions Follow Up With: NO,PCP [Non-Partnered Physician] - - Diet and Activity Diet: low salt diet Interval History: Mr. Lucia is a 61 year old male with hypertension, hyperlipidemia, anxiety, presented to the emergency department today with complaints of left-sided facial droop and left arm and leg numbness. Patient reports he noted symptoms at 5 AM. His face felt numb and tingly, his left arm and left leg felt numb though he had full movement and strength. He denies any chest pain, palpitations, shortness of breath, lightheadedness. He does endorse a mild left -sided headache. He denies any nausea or vomiting, abdominal pain diarrhea, fever chills or sweats. Evaluation in the emergency department included a CT of the head which showed no intracranial abnormality. White blood cell count was mildly elevated at 12.6. [facility] was contacted, they felt he was not a candidate for TPA. On my exam, patient reports that the left sided numbness in his arm and leg has resolved, and his face is starting to feel back to normal. However patient still has left-sided facial droop, plan nasal labial fold, and asymmetrical smile. Heart has regular rate and rhythm. Lungs are clear bilaterally to auscultation. Equal strength bilaterally. Patient reports normal sensation bilaterally on face, cranial nerves are intact, no pronator drift. Hospital course: Mr. Lucia is a 61 year old male admitted for left facial drop. Pt had MRI which shows negative. His symptoms resolved the next day. Neurology saw pt, consider TIA. Pt has HTN and HLD, and a current smoker. Pt was placed cardiac monitoring to r/o occult A Fib. He had Echo done which shows unremarkable. Pt had MRA show right ICA 30% stenosis. Pt is recommended to have aggressive risk factor reductive treatment with Plavix and atorvastatin by neurology. He is also adviced to stop smoking. I was called by nurse pt wants to leave hospital by signing AMA. I saw and talked pt at bedside. He is awake, alert, oriented x 3, understand what I talked to him. He understand he will have risk of new stroke, permanant disability or even if leave with AMA. He knows if he leave now he may have undetected arrhythmia and delayed the treatment. However, he insist to leave. Conversation witnessed by SUSSY Jin. Prescription of plavix and atorvastatin give pt for one month supply. Nicotine patch provide but pt refuse. Pt also was advised to follow up with PCP closely to manage HTN and HLD, he promise he will follow with PCP. Time spent discussing smoking cessation with patient: more than 10 minutes - Time Spent with Patient Total time spent providing and/or coordinating discharge services: 40 min Greater than 30 minutes - Constitutional Vitals: Temp Pulse Resp BP Pulse Ox 98.6 F 63 16 159/88 97 10/25/16 15:17 10/25/16 15:17 10/25/16 15:17 10/25/16 15:17 10/25/16 15:17 General appearance: Present: A&O X 3, pleasant, no acute distress - VTE Documentation of Mechanical Device: Graduated compression elastic hosiery
== END 2016-10-25 19:10 | disposition left against medical advice (07) ==
LOC: EMEROO 10:50 → 2NENU 10:50
PROVIDERS: ADMIT Internal Medicine; ATTEND Internal Medicine